=== PATIENT | male | born 1995 | race Caucasian/White ===

== ENCOUNTER 2020-08-21 21:49 | Emergency (ER) | payer OTHER ==
[~2020-08-21] VITALS: Ht 177.8 cm; Wt 115.0 kg
[2020-08-21] MEDS ORDERED: methylPREDNISolone sod succ 125mg/2ml vial IM ONE (23:40)
[2020-08-21] MEDS ORDERED: PRED20TA PO (23:41)
[2020-08-21 23:51] VITALS: BP 140/92
== END 2020-08-21 23:52 | disposition home or self-care (01) ==
LOC: ER 21:50
DX: L50.8 Other urticaria (principal); T78.49XA Other allergy, initial encounter; Z79.899 Other long term (current) drug therapy; X58.XXXA Exposure to other specified factors, initial encounter
CPT/HCPCS: 96372; 99283; J2930

== ENCOUNTER 2022-01-31 17:21 | Inpatient (IN) | payer OTHER ==
[~2022-01-31] VITALS: Ht 177.8 cm; Wt 102.0 kg
[2022-01-31 18:33] LABS: BASOPHILS # (AUTO) 0.1 X10'3 (0-0.2); BASOPHILS % (AUTO) 0.4 % (0-1); EOSINOPHILS # (AUTO) 0.1 X10'3 (0-0.9); EOSINOPHILS % (AUTO) 0.5 % (0-6); HEMATOCRIT 45.5 % (42.0-52.0); HEMOGLOBIN 16.1 g/dl (14.0-17.9); LYMPHOCYTES % (AUTO) 17.5 % (21-51); MEAN CORPUSCULAR HEMOGLOBIN 28.5 PG (27.0-31.0); MEAN CORPUSCULAR HGB CONC 35.4 g/dL (33.0-36.5); MEAN CORPUSCULAR VOLUME 80.5 FL (78-98); MONOCYTES # (AUTO) 0.9 X10'3 (0-0.9); NEUTROPHILS # (AUTO) 13.2 X10'3 (1.8-7.7); NEUTROPHILS % (AUTO) 76.6 % (42-75); RED BLOOD COUNT 5.65 X10'6 (4.70-6.10); RED CELL DISTRIBUTION WIDTH 13.3 % (11.5-14.5)
[2022-01-31] MEDS ORDERED: diphenhydrAMINE 50 mg/ml inj IV ONE (18:35)
[2022-01-31] MEDS ORDERED: glycopyrrolate 0.2mg/ml inj IV ONE (18:35)
[2022-01-31] MEDS ORDERED: ketorolac trometh. 30mg/ml inj. IV ONE (18:35)
[2022-01-31] MEDS ORDERED: metoclopramide 5 mg/ml inj IV ONE (18:35)
[2022-01-31 18:38] LABS: PLATELET COUNT 270 X10'3 (140-440)
[2022-01-31 18:41] LABS: WHITE BLOOD COUNT 17.2 X10'3 (4.5-11.0)
[2022-01-31 18:51] LABS: ALANINE AMINOTRANSFERASE 48 U/L (12-78); ALBUMIN 4.1 G/DL (3.4-5.0); ALKALINE PHOSPHATASE 130 IU/L (46-116); ANION GAP 20 (8-16); ASPARTATE AMINO TRANSFERASE 26 U/L (10-37); BILIRUBIN,TOTAL 0.5 MG/DL (0.1-1.0); BLOOD UREA NITROGEN 14 MG/DL (7-18); BUN/CREATININE RATIO 15.7 (5.4-32.0); CALCIUM 8.2 MG/DL (8.5-10.1); CHLORIDE 100 MMOL/L (99-107); CREATININE 0.89 MG/DL (0.60-1.10); GLUCOSE 239 MG/DL (70-104); POTASSIUM 3.6 MMOL/L (3.5-5.1); SODIUM 140 MMOL/L (135-145); TOTAL CARBON DIOXIDE 20.1 MMOL/L (24-32); TOTAL PROTEIN 8.1 G/DL (6.4-8.2); eGFR > 90 ML/MIN
[2022-01-31 19:12] LABS: LIPASE 9075 U/L (73-393)
[2022-01-31] MEDS ORDERED: NO HOME MEDS (19:17)
[2022-01-31] MEDS ORDERED: morphine 4 MG/ML inj SYRINge IV ONE (19:45)
[2022-01-31] MEDS ORDERED: CefTRIAXone 2gm/D5W 50ml BAG 50 ML IV ONE (19:45)
[2022-01-31] MEDS ORDERED: morphine 2 MG/ML inj. syringe IV PRN ×2 (20:00)
[2022-01-31] MEDS: normal saline 1000ml 1,000 ML IV SCH (20:00)
[2022-01-31] MEDS ORDERED: metoclopramide 5 mg/ml inj IV PRN (20:00)
[2022-01-31] MEDS ORDERED: magnesium hydroxide 30ml (MOM) UD suspension PO PRN (20:00)
[2022-01-31] MEDS ORDERED: mag hydrox/Alum hydrox/simeth 30ml oral suspension PO PRN (20:00)
[2022-01-31] MEDS ORDERED: HYDROcodone/acetaminophen 5mg/325mg tablet PO PRN (20:00)
[2022-01-31] MEDS ORDERED: acetaminophen 325mg tablet PO PRN ×2 (20:00)
[2022-01-31] MEDS ORDERED: normal saline 1000ML IV soln IVB ONE (20:15)
[2022-01-31] MEDS: docusate sod 100mg capsule PO SCH (20:52)
--- NOTE | 2022-01-31 21:42 | NUR ---
Call x2 for report. First call put on hold and second call no answer.
--- NOTE | 2022-01-31 21:49 | NUR ---
Third call for report and said that they could not find nurse Naa and she would call me back.
--- NOTE | 2022-01-31 22:33 | NUR ---
Report given to Naa HENSON
--- NOTE | 2022-01-31 22:34 | NUR ---
Patient in room ED 9. I have received report from Bria HENSON and had the opportunity to ask questions and assume patient care.
[2022-01-31 22:55] VITALS: BP 121/72
[2022-01-31 23:22] LABS: HEMOGLOBIN A1C 10.2 % (4.5-6.2)
[2022-02-01] VITALS (7 sets, daily range): BP systolic 84–132; BP diastolic 41–81
[2022-02-01] MEDS: normal saline 1000ml 1,000 ML IV SCH ×5 (01:32→23:24)
[2022-02-01] MEDS: HYDROcodone/acetaminophen 10/325mg tab PO PRN ×4 (02:06→20:29)
--- NOTE | 2022-02-01 06:44 | NUR ---
Problems reprioritized. Patient report given, questions answered & plan of care reviewed with Charisse HENSON.
[2022-02-01 07:12] LABS: BASOPHILS # (AUTO) 0.1 X10'3 (0-0.2); BASOPHILS % (AUTO) 0.3 % (0-1); EOSINOPHILS % (AUTO) 0.2 % (0-6); HEMATOCRIT 47.7 % (42.0-52.0); LYMPHOCYTES % (AUTO) 11.2 % (21-51); MEAN CORPUSCULAR HEMOGLOBIN 31.9 PG (27.0-31.0); MEAN CORPUSCULAR VOLUME 81.1 FL (78-98); MEAN PLATELET VOLUME 8.7 FL (7.4-10.4); MONOCYTES # (AUTO) 1.6 X10'3 (0-0.9); MONOCYTES % (AUTO) 8.9 % (2-12); NEUTROPHILS # (AUTO) 14.4 X10'3 (1.8-7.7); NEUTROPHILS % (AUTO) 79.4 % (42-75); PLATELET COUNT 208 X10'3 (140-440); RED BLOOD COUNT 5.89 X10'6 (4.70-6.10); RED CELL DISTRIBUTION WIDTH 13.3 % (11.5-14.5); WHITE BLOOD COUNT 18.2 X10'3 (4.5-11.0)
[2022-02-01 07:29] LABS: TOTAL CARBON DIOXIDE 15.6 MMOL/L (24-32)
[2022-02-01 07:49] LABS: HEMOGLOBIN 18.8 g/dl (14.0-17.9)
[2022-02-01 07:53] LABS: ALANINE AMINOTRANSFERASE 43 U/L (12-78); ALBUMIN/GLOBULIN RATIO 0.8 (1.1-1.5); ALKALINE PHOSPHATASE 104 IU/L (46-116); ANION GAP 21 (8-16); ASPARTATE AMINO TRANSFERASE 73 U/L (10-37); BILIRUBIN,TOTAL 0.7 MG/DL (0.1-1.0); BLOOD UREA NITROGEN 14 MG/DL (7-18); BUN/CREATININE RATIO 12.7 (5.4-32.0); CHLORIDE 106 MMOL/L (99-107); GLUCOSE 238 MG/DL (70-104); SODIUM 143 MMOL/L (135-145); TOTAL PROTEIN 6.9 G/DL (6.4-8.2); eGFR 82 ML/MIN
[2022-02-01 07:58] LABS: CALCIUM 5.5 MG/DL (8.5-10.1)
[2022-02-01] MEDS ORDERED: MESSAGE TO PHARMACY PO ONE (08:10)
[2022-02-01] MEDS ORDERED: DEXTROSE 15 GM of carb/4 tabs (each vial/BOTTLE has 4 tablets) PO PRN ×2 (08:10)
[2022-02-01] MEDS ORDERED: glucagon, human recombinant 1mg kit SUBCUT PRN (08:10)
[2022-02-01] MEDS ORDERED: insulin Lispro (HumaLOG) vial - multi-dose SQ SCH ×2 (08:10→14:25)
[2022-02-01] MEDS ORDERED: dextrose 50%-water 50ml dispensing syringe IV PRN ×2 (08:10)
[2022-02-01] MEDS: docusate sod 100mg capsule PO SCH ×2 (08:16→23:26)
[2022-02-01] MEDS: ondansetron/PF 4mg/2ml inj IV PRN ×2 (08:21→15:23)
[2022-02-01 08:24] LABS: MEAN CORPUSCULAR HGB CONC 38.8 g/dL (33.0-36.5)
[2022-02-01 10:12] LABS: HDL CHOLESTEROL 32 MG/DL (35-60); LDL CHOLESTEROL 69 MG/DL (50-100)
[2022-02-01 10:24] LABS: CHOL/HDL RATIO 12.3 (0.00-4.99); CHOLESTEROL 393 MG/DL (0-200)
[2022-02-01 10:35] LABS: TRIGLYCERIDES 5182 MG/DL (20-135)
[2022-02-01] MEDS ORDERED: dextrose 5%-1/2 normal saline 1,000 ML IV PRN (11:00)
[2022-02-01] MEDS ORDERED: normal saline 1000ml 1,000 ML IVB ONE (11:00)
[2022-02-01] MEDS: Insulin Reg/NS 100units/100mL 100 ML IV SCH ×2 (12:38→19:38)
--- NOTE | 2022-02-01 13:00 | NUR ---
DM Consult "new onset DM": Pt admit DX acute pancreatitis and new onset DM A1C 10.2% no prior medical hx per EMR. Pt remains NPO Glu 351mg/dl to start insulin drip per EMR. Lipase 9075 w/ TG 5182mg/dl, Cholesterol 393, and HDL 32 per EMR. Pt is aware of new DM DX by MD per RN this AM. Pt seen by RD at bedside however not great time for ed per RN. Mother at bedside who RD provided w/ written DM ed and RD contact information. RD informed pt will provide thorough DM ed once feeling better prior to discharge; unsure at this time what dietary trends pt has at home such as keto, etc. LBM 01/31 w/ abdominal pain persisting per EMR. Will monitor for further nutrition intervention needs this admit. Rec: 1. advanced diet as medically indicated to carb controlled/heart healthy 2. monitor for ONS needs once PO diet advances 3. bowel care per rx 4. consider anti-hyperlipidemic agent per MD discretion 5. scaled wt this admit; subsequent weekly wts 6. verbal DM ed reinforcement once more appropriate prior to discharge Addendum: 02/01/22 at [address] Amended: Links added.
--- NOTE | 2022-02-01 15:02 | NUR ---
Page Sent promotional table spacer PAGER ID: [phone] MESSAGE: [id number]. Roland. Please call regarding insulin gtt. Charisse @[phone]
[2022-02-01] MEDS ORDERED: insulin Lispro (HumaLOG) vial - multi-dose SQ PRN (15:15)
--- NOTE | 2022-02-01 17:43 | NUR ---
Earlier pt had dizzy spell with low BP of 84/[address] and orders received for one liter bolus of NS and to start insulin gtt. PT BP has been monitored Q15 @ bedside and systolic has not dropped below 90 again.
--- NOTE | 2022-02-01 18:22 | NUR ---
Problems reprioritized. Patient report given, questions answered & plan of care reviewed with Lois HENOSN. Patient resting in bed in no acute distress.
[2022-02-01 18:44] LABS: TOTAL CARBON DIOXIDE 22.2 MMOL/L (24-32)
[2022-02-01 19:16] LABS: ALBUMIN 2.7 G/DL (3.4-5.0); ANION GAP 11 (8-16); BLOOD UREA NITROGEN 23 MG/DL (7-18); BUN/CREATININE RATIO 12.3 (5.4-32.0); CHLORIDE 110 MMOL/L (99-107); CREATININE 1.87 MG/DL (0.60-1.10); GLUCOSE 254 MG/DL (70-104); POTASSIUM 5.3 MMOL/L (3.5-5.1); SODIUM 143 MMOL/L (135-145); eGFR 45 ML/MIN
[2022-02-01 19:35] LABS: HEMATOCRIT 48.2 % (42.0-52.0); HEMOGLOBIN 16.1 g/dl (14.0-17.9); MEAN CORPUSCULAR HEMOGLOBIN 27.8 PG (27.0-31.0); MEAN CORPUSCULAR HGB CONC 33.5 g/dL (33.0-36.5); MEAN PLATELET VOLUME 9.3 FL (7.4-10.4); PLATELET COUNT 220 X10'3 (140-440); RED BLOOD COUNT 5.81 X10'6 (4.70-6.10); WHITE BLOOD COUNT 17.3 X10'3 (4.5-11.0)
[2022-02-01 19:36] LABS: CALCIUM 5.7 MG/DL (8.5-10.1)
[2022-02-01 19:39] LABS: BASOPHILS # (AUTO) 0.1 X10'3 (0-0.2); BASOPHILS % (AUTO) 0.5 % (0-1); EOSINOPHILS % (AUTO) 0.5 % (0-6); LYMPHOCYTES # (AUTO) 2.1 X10'3 (1.1-4.8); LYMPHOCYTES % (AUTO) 10.7 % (21-51); MONOCYTES # (AUTO) 1.5 X10'3 (0-0.9); MONOCYTES % (AUTO) 0.1 % (2-12); NEUTROPHILS # (AUTO) 15.7 X10'3 (1.8-7.7); NEUTROPHILS % (AUTO) 81.2 % (42-75)
--- NOTE | 2022-02-01 19:45 | NUR ---
notified of pt's critical lab test result .Calcium 5.7. and elevated procalcitonin of 18.29. No new order.
[2022-02-01] MEDS ORDERED: insulin glargine (Lantus) pen - multi-dose SQ SCH (21:00)
[2022-02-02] MEDS: Insulin Reg/NS 100units/100mL 100 ML IV SCH (03:32)
[2022-02-02] MEDS ORDERED: naloxone 0.4 mg/ml inj ONE (03:49)
[2022-02-02] MEDS ORDERED: LORazepam 2 mg/ml vial IV ONE ×2 (03:55→04:05)
[2022-02-02] MEDS ORDERED: LORazepam 2 mg/ml vial ONE (03:55)
[2022-02-02 04:23] LABS: BASOPHILS # (AUTO) 0.2 X10'3 (0-0.2); BASOPHILS % (AUTO) 0.8 % (0-1); EOSINOPHILS # (AUTO) 0.1 X10'3 (0-0.9); EOSINOPHILS % (AUTO) 0.4 % (0-6); HEMATOCRIT 42.7 % (42.0-52.0); HEMOGLOBIN 14.3 g/dl (14.0-17.9); LYMPHOCYTES # (AUTO) 5.2 X10'3 (1.1-4.8); LYMPHOCYTES % (AUTO) 22.1 % (21-51); MEAN CORPUSCULAR HEMOGLOBIN 28.9 PG (27.0-31.0); MEAN CORPUSCULAR HGB CONC 33.5 g/dL (33.0-36.5); MEAN CORPUSCULAR VOLUME 86.4 FL (78-98); MEAN PLATELET VOLUME 9.1 FL (7.4-10.4); MONOCYTES # (AUTO) 1.9 X10'3 (0-0.9); MONOCYTES % (AUTO) 8.1 % (2-12); NEUTROPHILS # (AUTO) 16.2 X10'3 (1.8-7.7); NEUTROPHILS % (AUTO) 68.6 % (42-75); PLATELET COUNT 310 X10'3 (140-440); RED BLOOD COUNT 4.94 X10'6 (4.70-6.10); RED CELL DISTRIBUTION WIDTH 14.9 % (11.5-14.5); WHITE BLOOD COUNT 23.6 X10'3 (4.5-11.0)
[2022-02-02 04:24] LABS: ABG BASE EXCESS -20.8 mmol/L (-2.0-2.0); ABG HCO3 10.8 mmol/L (22.0-26.0); ABG PCO2 (T) 47.6 mmHg (35.0-48.0); ABG PO2 (T) 89.3 mmHg (75.0-100.0); FCOHb 0.3 % (0.0-3.9); FLOW 5 L/min; FMetHb 0.5 % (0.0-1.5); FO2Hb 91.3 % (94-97); TOTAL HEMOGLOBIN 14.1 G/dl (14.0-18.0)
[2022-02-02] MEDS ORDERED: sodium bicarbonate (8.4%) inj. 150 MEQ in dextrose 5%-water 1,000 ML IV SCH (04:35)
[2022-02-02] MEDS ORDERED: LORazepam 2 mg/ml vial IV PRN (04:40)
[2022-02-02 04:46] LABS: TOTAL CELLS COUNTED 100
[2022-02-02 04:47] LABS: PLATELET ESTIMATE NORMAL
--- NOTE | 2022-02-02 05:52 | NUR ---
Around 03.20 pt complained of SOB, 2L of O2 was inserted with good effect. Around 03.55 pt's condition started to change,His eyes was fixed and he became unresponsive.Charge nurse was notified. She tried to arouse the pt but to no avail so rapid was activated with Dr Smith in the pt's room. Respiratory therapist increased his O2 to 5L.Within a short time after rapid showed up, pt was able to move his hands and body and alter some words though no one understood what he was saying.His vitals were being checked regularly.Around o4 30, it was notice that he wasn't breathing and his pulse was barely felt.Code blue was activated but all effort was to no avail.Family was contacted who arrived few minutes after the pt was was pronounced dad by .[facility] was contacted.Family still in pt's room as at the time of this report.
--- NOTE | 2022-02-02 06:37 | NUR ---
Patient in room PCU 3023. I have received report from Lois HENSON and had the opportunity to ask questions and assume patient care.
--- NOTE | 2022-02-02 07:35 | NUR ---
Received call from Dannielle from [facility] office and supplied her with necessary information. She will call right back and notify me if it is ok to release body to the mortuary
--- NOTE | 2022-02-02 07:40 | NUR ---
According to Dannielle from the [facility] this is not a [facility] case and we are able to release the body.
--- NOTE | 2022-02-02 11:40 | NUR ---
[facility] notified per parents wishes. Contact made with [facility] and they will send someone over.
--- NOTE | 2022-02-02 14:39 | NUR ---
Ice applied to arm pits, groin, and head at request of donor network at 1435.
--- NOTE | 2022-02-02 15:51 | NUR ---
patient was picked up by [facility] at 1523
== END 2022-02-02 15:25 | DRG 440 ==
LOC: ER 17:23 → ED HOLD 20:04 → EDBEDREQ 20:52 → PCU 3S 22:52
PROVIDERS: ADMIT Internal Medicine; ATTEND Internal Medicine
PROC: 5A12012 Performance of Cardiac Output, Single, Manual (ICD-10-PCS; principal; 2022-02-02)
DX: K85.90 Acute pancreatitis without necrosis or infection, unspecified (principal); E11.65 Type 2 diabetes mellitus with hyperglycemia; E78.1 Pure hyperglyceridemia; K76.0 Fatty (change of) liver, not elsewhere classified; R16.0 Hepatomegaly, not elsewhere classified; K83.8 Other specified diseases of biliary tract; N19 Unspecified kidney failure; Z83.3 Family history of diabetes mellitus
CPT/HCPCS: 36415; 36600; 74176; 76700; 80048; 80053; 80061; 82803; 82948; 83036; 83605; 83690; 84145; 85007; 85018; 85025; 87081; 92950; 94799; 96374; 96375; 99285; A4615; G0378; J0696; J1200; J1815; J1885; J2060; J2270; J2310; J2405; J2765; J3490; J7030; J7070